=== PATIENT | female | born 2000 | race Two or more races ===

== ENCOUNTER 2023-12-13 22:24 | Emergency (ER) | payer MEDICAID, OTHER ==
[~2023-12-13] VITALS: Ht 157.5 cm; Wt 71.2 kg
[2023-12-13 22:45] VITALS: BP 118/83; PULSE 64; RESP 14; TEMP 98.5
[2023-12-13 23:01] LABS: Urine Epithelial Cast None Seen /hpf (<5)
[2023-12-13 23:09] LABS: Urine Bacteria FEW /hpf (None Seen); Urine Blood 2+ /uL (Negative); Urine Clarity HAZY (Clear); Urine Color Yellow (Yellow); Urine Protein, UAD TRACE (Negative); Urine Urobilinogen Normal (Negative); Urine WBC 760 /hpf (0 - 5)
[2023-12-13] MEDS ORDERED: NITR-52 PO ×2 (23:39)
[2023-12-14] MEDS ORDERED: NITR-52 PO (00:08)
[2023-12-14 00:21] VITALS: O2SAT 100
== END 2023-12-14 00:40 | disposition home or self-care (01) ==
LOC: ER 22:24
DX: N39.0 Urinary tract infection, site not specified (principal); Z32.02 Encounter for pregnancy test, result negative
CPT/HCPCS: 81001; 81025

== ENCOUNTER 2024-02-11 16:02 | Emergency (ER) | payer MEDICAID ==
[~2024-02-11] VITALS: Ht 157.5 cm; Wt 74.3 kg
[~2024-02-11 16:02] MED LIST: NITR-52 PO
[2024-02-11 20:30] VITALS: BP 119/93; PULSE 60; TEMP 98.2; O2SAT 99
[2024-02-11] MEDS ORDERED: IBUP-1456 PO (20:32)
[2024-02-11] MEDS ORDERED: CEFI400C3 PO (20:32)
[2024-02-11] MEDS ORDERED: CLIN300C70 PO (20:32)
[2024-02-11] MEDS: KETOROLAC TROMETH 60MG/2ML VIAL IM ONE (20:42)
[2024-02-11] MEDS: cefTRIAXone SOD 1,000 MG VL IM ONE (20:43)
[2024-02-11 22:37] VITALS: RESP 17
== END 2024-02-11 22:40 | disposition home or self-care (01) ==
LOC: ER 16:02
DX: N75.0 Cyst of Bartholin's gland (principal)
CPT/HCPCS: 96372; 99284; J0696; J1885